=== PATIENT | female | born 1965 | race Caucasian/White ===

== ENCOUNTER 2023-08-26 12:00 | Outpatient (RCR) | payer OTHER, SELFPAY | END 2023-09-30 11:38 | disposition home or self-care (01) | LOC: HO.PT 12:00 | PROVIDERS: PCP Nurse Practitioner; Visit Provider Internal Medicine Gastroenterology | DX: K59.02 Outlet dysfunction constipation (principal); K58.9 Irritable bowel syndrome, unspecified | CPT/HCPCS: 97110; 97112; 97140; 97162 ==